=== PATIENT | male | born 1995 | race Hispanic/Latino ===

== ENCOUNTER 2021-02-19 08:55 | Emergency (ER) | payer SELFPAY ==
[2021-02-19] MEDS ORDERED: KETOROLAC 30 MG/ML INJ ONE (10:11)
[2021-02-19] MEDS ORDERED: NA CHLORIDE 0.9% 1,000 ML ONE (10:11)
[2021-02-19 10:39] LABS: Hematocrit 44.7 % (39.6-49.0); Lymphocytes % 12.5 % (15.3-44.8); MPV 8.5 fL (7.6-11.3); RBC Red Blood Cell Count 4.98 M/uL (4.33-5.43)
--- NOTE | 2021-02-19 11:27 | RAD REPORT ---
EXAM DESCRIPTION: RAD - Chest Single View - 02/19/2021 11:08 am CLINICAL HISTORY: chest pain, sob Chest pain. COMPARISON: CHEST SINGLE VIEW dated 07/20/2011 FINDINGS: Portable technique limits examination quality. The lungs are grossly clear. The heart is normal in size. No displaced fractures. IMPRESSION: No acute intrathoracic process suspected.
[2021-02-19 13:02] LABS: Potassium 3.9 mmol/L (3.5-5.1)
[2021-02-19 16:56] LABS: Troponin High Sensitivity 5.1 pg/mL (<58.9)
--- NOTE | 2021-02-19 17:36 | EDPHYS ---
Physician Documentation [facility] Name: Huseyin Shepherd Age: 26 yrs Sex: Male : 1995 Arrival Date: 02/19/2021 Time: 08:59 Bed 18 Private MD: ED Physician Aj Carlson HPI: 02/19 09:55 This 26 yrs old Male presents to ER via Ambulatory with complaints of covid+, jmm symptoms worsening. 09:55 The patient or guardian reports cough. Onset: The symptoms/episode began/occurred jmm gradually, 1 week(s) ago. Modifying factors: The symptoms are alleviated by nothing. the symptoms are aggravated by nothing. Associated signs and symptoms: Pertinent positives: chest pain, with cough, with movement, with breathing. The patient has not experienced similar symptoms in the past. Patient diagnosed with covid 1 week ago. Patient complains of worsening body aches and chest pain since onset. Patient states that he has had decreased appetite.. Historical: - Allergies: 09:33 No Known Allergies; [facility] - Home Meds: 09:33 None [Active]; [facility] - PMHx: 09:33 Migraine; [facility] - Immunization history:: Adult Immunizations up to date. - Social history:: Smoking status: Patient denies any tobacco usage or history of. ROS: 09:55 Constitutional: Positive for body aches, chills. jmm 09:55 Cardiovascular: Positive for chest pain, with cough. 09:55 Respiratory: Positive for shortness of breath. 09:55 All other systems are negative. Exam: 09:55 Constitutional: This is a well developed, well nourished patient who is awake, alert, jmm and in no acute distress. Head/Face: atraumatic. Eyes: EOMI, no conjunctival erythema appreciated ENT: Moist Mucus Membranes Neck: Trachea midline, Supple Chest/axilla: Normal chest wall appearance and motion. Cardiovascular: Regular rate and rhythm. No edema appreciated Respiratory: Normal respirations, no respiratory distress appreciated Abdomen/GI: Non distended, soft Back: Normal ROM Skin: General appearance color normal MS/ Extremity: Moves all extremities, no obvious deformities appreciated, no edema noted to the lower extremities Neuro: Awake and alert, normal gait Psych: Behavior is normal, Mood is normal, Patient is cooperative and pleasant Vital Signs: 09:28 BP 136 / 89; Pulse 89; Resp 18; Temp 98.7(TE); Pulse Ox 100% on R/A; Weight 54.43 kg; [facility] Height 5 ft. 3 in. (160.02 cm); Pain 7/10; 10:31 BP 139 / 76; Pulse 80; Resp 16; Pulse Ox 100% ; vg1 11:31 BP 136 / 89; Pulse 64; Resp 18; Pulse Ox 98% ; vg1 12:30 BP 127 / 79; Pulse 90; Resp 20; Pulse Ox 100% ; vg1 13:15 BP 128 / 73; Pulse 68; Resp 17; Pulse Ox 99% ; vg1 14:45 BP 137 / 90; Pulse 74; Resp 16; Pulse Ox 99% ; vg1 09:28 Body Mass Index 21.26 (54.43 kg, 160.02 cm) [facility] MDM: 09:55 Patient medically screened. arabella 17:34 Data reviewed: vital signs, nurses notes. Counseling: I had a detailed discussion with arabella the patient and/or guardian regarding: the historical points, exam findings, and any diagnostic results supporting the discharge/admit diagnosis, radiology results, the need for outpatient follow up, to return to the emergency department if symptoms worsen or persist or if there are any questions or concerns that arise at home. ED course: Patient patient is alert and nontoxic in appearance in the ED. No signs of respiratory distress. Labs are unremarkable. Patient advised to follow-up PCP and otherwise given strict return precautions. Patient understood agrees plan of care.. 02/19 09:56 Order name: CBC with Diff; Complete Time: 10:41 [facility] 02/19 09:56 Order name: BMP; Complete Time: 17:14 [facility] 02/19 09:56 Order name: D-Dimer; Complete Time: 10:48 [facility] 02/19 09:56 Order name: Troponin High Sensitivity; Complete Time: 17:14 [facility] 02/19 09:57 Order name: Chest Single View XRAY; Complete Time: 11:42 [facility] 02/19 09:56 Order name: Saline Lock; Complete Time: 10:28 [facility] 02/19 09:57 Order name: EKG - Nurse/Tech; Complete Time: 10:51 [facility] Administered Medications: 10:24 Drug: NS 0.9% 1000 ml Route: IV; Rate: 1 bolus; Site: right antecubital; vg1 11:31 Follow up: IV Status: Completed infusion; IV Intake: 1000ml vg1 10:25 Drug: Ketorolac 30 mg Route: IVP; Site: right antecubital; vg1 11:31 Follow up: Response: No adverse reaction; Marked relief of symptoms vg1 Disposition Summary: 02/19/21 17:36 Discharge Ordered Location: Home [facility] Condition: Stable jm Diagnosis - Viral Syndrome [facility] Followup: [facility] - With: Private Physician - When: 2 - 3 days - Reason: Recheck today's complaints, Continuance of care, Re-evaluation by your physician Discharge Instructions: - Discharge Summary Sheet [facility] - COVID-19 [facility] Forms: - Medication Reconciliation Form [facility] - Thank You Letter [facility] - Antibiotic Education [facility] - Prescription Opioid Use [facility] Signatures: Dispatcher [employer] Nima Drew PA PA jmm Garcia, Victoria RN RN vg1 Katy Claire RN RN jh5
--- NOTE | 2021-02-19 17:36 | ER ---
Nurse's Notes [facility] Name: Huseyin Shepherd Age: 26 yrs Sex: Male : 1995 Arrival Date: 02/19/2021 Time: 08:59 Bed 18 Private MD: Diagnosis: Viral Syndrome Presentation: 02/19 09:28 Chief complaint: Patient states: COVID+ last week and still positive on Tuesday; has jh5 15lbs and entire body hurts with muscle aches; medicine not helping ; feeling air hunger with trouble walking up stairs. Coronavirus screen: Vaccine status: Patient reports being unvaccinated. Client denies travel out of the [place] in the last 14 days. Client presents with at least one sign or symptom that may indicate coronavirus-19. Standard/surgical mask placed on the client. Client reports previous positive COVID test result. Date of collection: February 17, 2020. Ebola Screen: Patient negative for fever greater than or equal to 101.5 degrees Fahrenheit, and additional compatible Ebola Virus Disease symptoms Patient denies exposure to infectious person. Patient denies travel to an Ebola-affected area in the 21 days before illness onset. Initial Sepsis Screen: Does the patient meet any 2 criteria? No. Patient's initial sepsis screen is negative. Does the patient have a suspected source of infection? No. Patient's initial sepsis screen is negative. Risk Assessment: Do you want to hurt yourself or someone else? Patient reports no desire to harm self or others. Onset of symptoms was February 11, 2021. 09:28 Method Of Arrival: Ambulatory [facility] 09:28 Acuity: EMETERIO 3 5 Triage Assessment: 09:33 General: Appears uncomfortable, well groomed, well developed, well nourished, Behavior [facility] is calm, cooperative, appropriate for age, quiet. Pain: Complains of pain in head, neck, chest, abdomen, pelvis, right arm, right hand, left arm, left hand, right leg, right foot, left leg, left foot, back of head, back of neck, back of left arm, back of right arm, posterior chest, buttocks, back of left leg, back of right leg, left heel, right heel and back. Historical: - Allergies: 09:33 No Known Allergies; [facility] - Home Meds: 09:33 None [Active]; jh5 - PMHx: 09:33 Migraine; 5 - Immunization history:: Adult Immunizations up to date. - Social history:: Smoking status: Patient denies any tobacco usage or history of. Screenin:31 Abuse screen: Denies threats or abuse. Abuse screen: Denies threats or abuse. vg1 Nutritional screening: No deficits noted. Tuberculosis screening: No symptoms or risk factors identified. Fall Risk No fall in past 12 months (0 pts). No secondary diagnosis (0 pts). IV access (20 points). Ambulatory Aid- None/Bed Rest/Nurse Assist (0 pts). Gait- Normal/Bed Rest/Wheelchair (0 pts) Mental Status- Oriented to own ability (0 pts). Total Hill Fall Scale indicates No Risk (0-24 pts). Assessment: 10:15 General: Appears in no apparent distress. uncomfortable, Behavior is calm, cooperative. vg1 Pain: Complains of pain in generalized body Pain currently is 7 out of 10 on a pain scale. Neuro: Level of Consciousness is awake, alert, obeys commands, Oriented to person, place, time, situation. Cardiovascular: Patient's skin is warm and dry. Respiratory: Reports cough that is Airway is patent Respiratory effort is even, unlabored, Breath sounds are clear bilaterally. GI: Reports diarrhea, nausea, vomiting. : No signs and/or symptoms were reported regarding the genitourinary system. EENT: No signs and/or symptoms were reported regarding the EENT system. Derm: Skin is intact, is healthy with good turgor. Musculoskeletal: Circulation, motion, and sensation intact. 11:31 Reassessment: Patient appears in no apparent distress at this time. Patient and/or vg1 family updated on plan of care and expected duration. Pain level reassessed. Pt resting with eyes closed; family member at bedside. 12:50 Reassessment: Patient appears in no apparent distress at this time. Patient and/or vg1 family updated on plan of care and expected duration. Pain level reassessed. Patient is alert, oriented x 3, equal unlabored respirations, skin warm/dry/pink. Patient denies pain at this time. Patient states feeling better. 13:53 Reassessment: Patient appears in no apparent distress at this time. No changes from vg1 previously documented assessment. Patient is alert, oriented x 3, equal unlabored respirations, skin warm/dry/pink. 15:00 Reassessment: Patient appears in no apparent distress at this time. No changes from 1 previously documented assessment. Patient is alert, oriented x 3, equal unlabored respirations, skin warm/dry/pink. 16:49 Reassessment: Patient appears in no apparent distress at this time. No changes from 1 previously documented assessment. Patient and/or family updated on plan of care and expected duration. Pain level reassessed. Patient is alert, oriented x 3, equal unlabored respirations, skin warm/dry/pink. Vital Signs: 09:28 BP 136 / 89; Pulse 89; Resp 18; Temp 98.7(TE); Pulse Ox 100% on R/A; Weight 54.43 kg; [facility] Height 5 ft. 3 in. (160.02 cm); Pain 7/10; 10:31 BP 139 / 76; Pulse 80; Resp 16; Pulse Ox 100% ; vg1 11:31 BP 136 / 89; Pulse 64; Resp 18; Pulse Ox 98% ; vg1 12:30 BP 127 / 79; Pulse 90; Resp 20; Pulse Ox 100% ; vg1 13:15 BP 128 / 73; Pulse 68; Resp 17; Pulse Ox 99% ; vg1 14:45 BP 137 / 90; Pulse 74; Resp 16; Pulse Ox 99% ; vg1 09:28 Body Mass Index 21.26 (54.43 kg, 160.02 cm) [facility] ED Course: 08:59 Patient arrived in ED. as 09:33 Triage completed. [facility] 09:33 Arm band placed on right wrist. [facility] 09:46 Nima Todd PA is PHCP. [facility] 09:46 Aj Carlson MD is Attending Physician. [facility] 10:08 Antonietta Ty, RN is Primary Nurse. [facility] 10:20 Initial lab(s) drawn, by mn, sent to lab. Inserted saline lock: 20 gauge in right vg1 antecubital area, using aseptic technique. Blood collected. 10:31 Patient has correct armband on for positive identification. Bed in low position. Call [facility] light in reach. Side rails up X 1. Adult w/ patient. 10:51 EKG done, by ED staff, reviewed by Nima AGUILAR. [facility] 11:08 Chest Single View XRAY In Process Unspecified. EDMS 18:22 No provider procedures requiring assistance completed. IV discontinued, intact, iw bleeding controlled, No redness/swelling at site. Pressure dressing applied. Administered Medications: 10:24 Drug: NS 0.9% 1000 ml Route: IV; Rate: 1 bolus; Site: right antecubital; vg1 11:31 Follow up: IV Status: Completed infusion; IV Intake: 1000ml vg1 10:25 Drug: Ketorolac 30 mg Route: IVP; Site: right antecubital; vg1 11:31 Follow up: Response: No adverse reaction; Marked relief of symptoms vg1 Intake: 11:31 IV: 1000ml; Total: 1000ml. vg1 Outcome: 17:36 Discharge ordered by . arabella 18:22 Discharged to home ambulatory, with family. 18:22 Condition: good 18:22 Discharge instructions given to 18:23 Patient left the ED. Signatures: Dispatcher [employer] EDMS Nima Todd PA PA jmm Martinez, Amelia as Williams, Irene, Angeli Pereira RN Antonietta Tirado RN RN vg1 Katy Claire RN RN jh5
[2021-02-19 18:42] VITALS: TEMP 98.7
[2021-02-19 18:48] VITALS: O2SAT 99
[2021-02-19 18:49] VITALS: BP 137/90
== END 2021-02-19 18:23 | disposition home or self-care (01) ==
LOC: ER 08:55
DX: U07.1 COVID-19 (principal)
CPT/HCPCS: 36415; 71045; 80048; 84484; 85025; 85379; 93005; 96361; 96374; 99284; J7030

== ENCOUNTER 2024-04-20 20:43 | Emergency (ER) | payer OTHER, SELFPAY ==
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
[2024-04-20] MEDS ORDERED: ACETAMINOPHEN 500 MG TAB ONE (22:18)
[2024-04-20] MEDS ORDERED: IBUPROFEN 400 MG TAB ONE (22:18)
--- NOTE | 2024-04-20 22:47 | RAD REPORT ---
EXAMINATION: XR Foot Right 3 View CLINICAL INDICATION: Male, 29 years old. [facility] MAIN Pain;Swelling Bed Name: [id number] TECHNIQUE: 3 view radiographs of the right foot were obtained. COMPARISON: 04/10/2014 FINDINGS: No evidence of fracture or dislocation. Normal alignment. No evidence of arthropathy or oth er focal bone lesion. Soft tissues show no acute findings, stable rounded radiopaque structure in the space between the proximal second and third metatarsals.. No significant degenerative changes. IMPRESSION: No acute osseous abnormalities.
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
[2024-04-20 23:38] VITALS: TEMP 98.7; O2SAT 100
[2024-04-20 23:39] VITALS: BP 133/80
== END 2024-04-20 23:26 | disposition home or self-care (01) ==
LOC: ER 20:43
DX: S93.691A Other sprain of right foot, initial encounter (principal)
CPT/HCPCS: 99283

== ENCOUNTER 2024-04-30 00:19 | Emergency (ER) | payer SELFPAY ==
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
--- NOTE | 2024-04-30 01:00 | EDPHYS ---
Physician Documentation [facility] Name: Huseyin Shepherd Age: 29 yrs Sex: Male : 1995 Arrival Date: 04/30/2024 Time: 00:19 Bed 16 Private MD: ED Physician Carlito Jacobs HPI: 04/30 00:37 This 29 yrs old Male presents to ER via Unassigned with complaints of Foreign sp4 Body In Ear. Historical: - PMHx: 01:06 Migraine; ay - Infectious Disease History:: Denies. - Social history:: Smoking status: Patient denies any tobacco usage or history of. Vital Signs: 01:04 BP 141 / 80; Pulse 72; Resp 19; Temp 97.6; Pulse Ox 100% on R/A; ay MDM: 00:59 Medical Screening Exam initiated sp4 Administered Medications: No medications were administered Disposition Summary: 04/30/24 00:59 Discharge Ordered Notes: Location: Home sp4 Problem: new sp4 Symptoms: have improved sp4 Condition: Stable sp4 Diagnosis - Foreign body left ear canal , choudhary in the left ear canal sp4 Followup: sp4 - With: Private Physician - When: 7 - 10 days - Reason: Recheck today's complaints Discharge Instructions: - Discharge Summary Sheet sp4 - Ear Foreign Body, [id number] sp4 Forms: - Patient Portal Instructions sp4 Addendum: 05/01/2024 01:15 Addendum: 29-year-old male presents with acute choudhary lodged in the left ear canal.. s p4 Patient reports moderate to severe pain in her left ear canal. Patient reports he can feel choudhary is still alive. ROS positive for acute left ear canal pain otherwise negative. Focused physical exam reveals normal right ear canal, left ear canal contains a life small choudhary. Procedural extraction - alligator forceps were used to carefully extracted choudhary in its entirety from the left ear canal. Choudhary was completely removed. Ear canal was visualized with otoscope and found to have small amount of blood otherwise clear ear canal. Patient stable for discharge home after removal of a choudhary from the ear canal. Stable for discharge . Signatures: Carlito Jacobs MD MD sp4 Taiwo Mejia, RN RN ay
--- NOTE | 2024-04-30 01:12 | ER ---
Nurse's Notes [facility] Name: Huseyin Shepherd Age: 29 yrs Sex: Male : 1995 Arrival Date: 04/30/2024 Time: 00:19 Bed 16 Private MD: Diagnosis: Foreign body left ear canal , caputo in the left ear canal Presentation: 04/30 01:04 Chief complaint: Patient states: foreign body in left ear. Coronavirus screen: Client ay denies travel out of the [place] in the last 14 days. Ebola Screen: No symptoms or risks identified at this time. Initial Sepsis Screen: Does the patient meet any 2 criteria? No. Patient's initial sepsis screen is negative. Does the patient have a suspected source of infection? No. Patient's initial sepsis screen is negative. Risk Assessment: Do you want to hurt yourself or someone else? Patient reports no desire to harm self or others. Onset of symptoms was April 30, 2024. 01:04 Method Of Arrival: Ambulatory ay 01:04 Acuity: EMETERIO 4 ay Triage Assessment: 01:06 General: Appears in no apparent distress. uncomfortable, Behavior is calm, cooperative. ay Pain: Denies pain. EENT: Reports foreign body in left ear. Denies pain in left ear. Neuro: Level of Consciousness is awake, alert, obeys commands, Oriented to person, place, time, situation, Speech is normal. Cardiovascular: Denies chest pain, nausea, vomiting, Capillary refill < 3 seconds. Respiratory: Denies cough, shortness of breath. GI: No signs and/or symptoms were reported involving the gastrointestinal system. : No signs and/or symptoms were reported regarding the genitourinary system. Derm: No signs and/or symptoms reported regarding the dermatologic system. Historical: - PMHx: 01:06 Migraine; ay - Infectious Disease History:: Denies. - Social history:: Smoking status: Patient denies any tobacco usage or history of. Screenin:09 [facility] ED Fall Risk Assessment (Adult) History of falling in the last 3 months, ay including since admission No falls in past 3 months (0 pts) Confusion or Disorientation No (0 pts) Intoxicated or Sedated No (0 pts) Impaired Gait No (0 pts) Mobility Assist Device Used No (0 pt) Altered Elimination No (0 pt) Score/Fall Risk Level 0 - 2 = Low Risk Oriented to surroundings, Maintained a safe environment, Educated pt \T\ family on fall prevention, incl call for assistance when getting out of bed. Abuse screen: Denies threats or abuse. Nutritional screening: No deficits noted. Tuberculosis screening: No symptoms or risk factors identified. Assessment: 01:09 General: See Triage Assessment. Pain: Denies pain. ay Vital Signs: 01:04 BP 141 / 80; Pulse 72; Resp 19; Temp 97.6; Pulse Ox 100% on R/A; ay ED Course: 00:21 Patient arrived in ED. [email or web address] 00:37 Carlito Jacobs MD is Attending Physician. kathy 01:04 Taiwo Mejia, LOIS is Primary Nurse. ay :06 Triage completed. ay :09 Patient did not have IV access during this emergency room visit. ay Administered Medications: No medications were administered Outcome: 00:59 Discharge ordered by . [email or web address] 01:10 Discharged to home ambulatory, ay 01:10 Condition: stable 01:10 Discharge instructions given to patient, Instructed on discharge instructions, Demonstrated understanding of instructions, 01:11 Patient left the ED. ay Signatures: Kim Danyelle [email or web address] Carlito Jacobs MD MD sp4 Taiwo Mejia, RN RN ay
[2024-04-30 01:18] VITALS: BP 141/80; TEMP 97.6; O2SAT 100
== END 2024-04-30 01:11 | disposition home or self-care (01) ==
LOC: ER 00:19
DX: T16.2XXA Foreign body in left ear, initial encounter (principal)
CPT/HCPCS: 99282

== ENCOUNTER 2024-05-25 01:22 | Emergency (ER) | payer SELFPAY, OTHER ==
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
[2024-05-25] MEDS ORDERED: LIDOCAINE 2% W/EPI 1:200,000 MPF 20 ML VIAL IM ONE (02:53)
[2024-05-25] MEDS ORDERED: NA CHLORIDE 0.9% 1,000 ML ONE (02:53)
[2024-05-25 03:07] LABS: Absolute Basophils 0.1 K/uL (0-0.5); Absolute Eosinophils 0.1 K/uL (0-0.5); Absolute Lymphocytes (CBC) 1.8 K/uL (0.7-4.9); Absolute Monocytes 0.7 K/uL (0.1-1.3); Absolute Neutrophil 5.1 K/uL (1.8-8.0); Basophils % 0.9 % (0-1.3); Eosinophils % 1.8 % (0-4.4); Hematocrit 43.8 % (39.6-49.0); Hemoglobin 15.1 g/dL (13.6-17.9); Lymphocytes % 22.5 % (15.3-44.8); MCH 31.3 pg (27.0-35.0); MCHC 34.4 g/dL (32.0-36.0); MCV 90.9 fL (80-100); MPV 7.8 fL (7.6-11.3); Monocytes % 8.9 % (3.3-12.3); Neutrophils % 65.9 % (41.7-73.7); Platelets 250 thou/uL (152-406); RBC Red Blood Cell Count 4.82 M/uL (4.33-5.43); Red Cell Distribution Width 13.7 % (12.1-15.2)
[2024-05-25 03:15] LABS: Anion Gap 11.4 mEq/L (5.0-15.0); Potassium 3.4 mEq/L (3.5-5.1)
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
[2024-05-25 07:32] VITALS: TEMP 98.5
[2024-05-25 07:37] VITALS: BP 103/62; O2SAT 97
== END 2024-05-25 07:02 | disposition short-term general hospital (02) ==
LOC: ER 01:22
DX: S01.81XA Laceration without foreign body of other part of head, initial encounter (principal); M43.12 Spondylolisthesis, cervical region; V58.5XXA Driver of pick-up truck or van injured in noncollision transport accident in traffic accident, initial encounter
CPT/HCPCS: 12001; 36415; 70450; 71260; 72125; 74177; 80048; 82077; 85025; 86850; 86900; 86901; 96360; 96361; 99285; J7030; Q9967

== ENCOUNTER 2024-05-30 15:11 | Emergency (ER) | payer SELFPAY, OTHER ==
[2011-07-23 11:56] VITALS: BP 118/71
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
--- NOTE | 2024-05-30 15:30 | EDPHYS ---
Physician Documentation [facility] Name: Huseyin Shepherd Age: 29 yrs Sex: Male : 1995 Arrival Date: 05/30/2024 Time: 15:11 Bed DX4 Private MD: ED Physician George Colby HPI: 05/30 15:27 This 29 yrs old Male presents to ER via Unassigned with complaints of Suture kb Removal. 15:27 Pt is a 29 year old male who presents to have sutures removed from forehead that were kb placed 5 days ago. Denies any problems or pain. Historical: - Allergies: 15:38 No Known Allergies; ll1 - PMHx: 15:38 Migraine; ll1 - Immunization history:: Adult Immunizations up to date. - Infectious Disease History:: Denies. - Social history:: Smoking status: Patient denies any tobacco usage or history of. ROS: 15:27 Constitutional: As per HPI kb Exam: 15:27 Constitutional: This is a well developed, well nourished patient who is awake, alert, kb and in no acute distress. Head/Face: Normocephalic, atraumatic. ENT: Moist Mucous membranes Respiratory: Respirations even and unlabored. No increased work of breathing. Talking in full sentences MS/ Extremity: Pulses equal, no cyanosis. Neurovascular intact. Full, normal range of motion. Neuro: Awake and alert, GCS 15, oriented to person, place, time, and situation. 15:27 Skin: Wound recheck: Suture laceration closure: the wound is healing well, the edges are well approximated, no evidence of dehiscence, no drainage, no erythema, no swelling, Vital Signs: 15:38 Resp 16; Pain 0/10; ll1 15:38 Pain Scale: Adult ll1 MDM: 15:26 Medical Screening Exam initiated kb 15:28 Data reviewed: vital signs, nurses notes. Counseling: I had a detailed discussion with kb the patient and/or guardian regarding the historical points, exam findings, and any diagnostic results supporting the discharge/admit diagnosis, the need for outpatient follow up, a family practitioner, to return to the emergency department if symptoms worsen or persist or if there are any questions or concerns that arise at home. ED course: wound cleaned with saline and began bleeding. Pressure applied and bleeding resolved. Recommended sutures stay in place for 5 more days. Pt requested a note to go back to work. . Administered Medications: No medications were administered Disposition Summary: 05/30/24 15:29 Discharge Ordered Notes: Location: Home kb Condition: Stable kb Diagnosis - Encounter for removal of sutures - not done kb Followup: kb - With: Emergency Department - When: As needed - Reason: Worsening of condition Followup: kb - With: Private Physician - When: 2 - 3 days - Reason: Recheck today's complaints, Continuance of care, Re-evaluation by your physician Discharge Instructions: - Discharge Summary Sheet kb - Sutures, Sherwood, or Adhesive Wound Closure kb Forms: - Work release form kb - Medication Reconciliation Form kb - Antibiotic Education kb - Prescription Opioid Use kb - Patient Portal Instructions kb - Leadership Thank You Letter kb Signatures: Dorothea Charles FNP-C FNP-Kavita Fairchild, RN RN ll1
--- NOTE | 2024-05-30 15:42 | ER ---
Nurse's Notes [facility] Name: Huseyin Shepherd Age: 29 yrs Sex: Male : 1995 Arrival Date: 05/30/2024 Time: 15:11 Bed DX4 Private MD: Diagnosis: Encounter for removal of sutures-not done Presentation: 05/30 15:38 Chief complaint: Patient states: Needs stitches removed from forehead. No fever. ll1 Coronavirus screen: Client denies travel out of the [place] in the last 14 days. At this time, the client does not indicate any symptoms associated with coronavirus-19. Ebola Screen: Patient denies travel to an Ebola-affected area in the 21 days before illness onset. Initial Sepsis Screen: Does the patient meet any 2 criteria? No. Patient's initial sepsis screen is negative. Does the patient have a suspected source of infection? No. Patient's initial sepsis screen is negative. Risk Assessment: Do you want to hurt yourself or someone else? Patient reports no desire to harm self or others. Onset of symptoms was May 30, 2024. 15:38 Method Of Arrival: Ambulatory ll1 15:38 Acuity: EMETERIO 5 ll1 Triage Assessment: 15:39 General: Appears in no apparent distress. Behavior is calm, cooperative, appropriate ll1 for age, needs stitches removed from forehead. Pain: Denies pain. Historical: - Allergies: 15:38 No Known Allergies; ll1 - PMHx: 15:38 Migraine; ll1 - Immunization history:: Adult Immunizations up to date. - Infectious Disease History:: Denies. - Social history:: Smoking status: Patient denies any tobacco usage or history of. Screenin:40 [facility] ED Fall Risk Assessment (Adult) History of falling in the last 3 months, ll1 including since admission No falls in past 3 months (0 pts) Confusion or Disorientation No (0 pts) Intoxicated or Sedated No (0 pts) Impaired Gait No (0 pts) Mobility Assist Device Used No (0 pt) Altered Elimination No (0 pt) Score/Fall Risk Level 0 - 2 = Low Risk Maintained a safe environment, Hourly rounding (assess needs \T\ fall precautionary measures) done. Abuse screen: Denies threats or abuse. Nutritional screening: No deficits noted. Tuberculosis screening: No symptoms or risk factors identified. Vital Signs: 15:38 Resp 16; Pain 0/10; ll1 15:38 Pain Scale: Adult ll1 ED Course: 15:13 Patient arrived in ED. im 15:16 [facility]othea Charles F[facility]-C [facility] kb 15:16 George Colby MD is Attending Physician. kb 15:38 Arm band placed on. ll1 15:39 Triage completed. ll1 15:40 No provider procedures requiring assistance completed. Patient did not have IV access ll1 during this emergency room visit. 15:41 Patient has correct armband on for positive identification. Bed in low position. ll1 Provided Education on: ER procedures and process. Administered Medications: No medications were administered Medication: 15:40 VIS not applicable for this client. ll1 Outcome: 15:29 Discharge ordered by . kb 15:40 Discharged to home ambulatory, ll1 15:40 Condition: stable 15:40 Discharge instructions given to patient, Instructed on discharge instructions, follow up and referral plans. wound care, Demonstrated understanding of instructions, follow-up care, wound care, 15:41 Patient left the ED. ll1 Signatures: Dorothea Charles FNP-C FNP-Ckb Lewis, Lynsay RN RN ll1 Jennifer Miller im
== END 2024-05-30 15:41 | disposition home or self-care (01) ==
LOC: ER 15:11
DX: Z48.02 Encounter for removal of sutures (principal)

== ENCOUNTER 2024-06-06 18:10 | Emergency (ER) | payer OTHER, SELFPAY ==
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
--- NOTE | 2024-06-06 18:41 | ER ---
Nurse's Notes [facility] Name: Huseyin Shepherd Age: 29 yrs Sex: Male : 1995 Arrival Date: 06/06/2024 Time: 18:10 Bed Treatment Private MD: Diagnosis: Encounter for removal of sutures Presentation: 06/06 18:33 Chief complaint: Patient states: needs sutures removed from forehead. Coronavirus iw screen: At this time, the client does not indicate any symptoms associated with coronavirus-19. Ebola Screen: No symptoms or risks identified at this time. Initial Sepsis Screen: Does the patient meet any 2 criteria? No. Patient's initial sepsis screen is negative. Does the patient have a suspected source of infection? No. Patient's initial sepsis screen is negative. Risk Assessment: Do you want to hurt yourself or someone else? Patient reports no desire to harm self or others. 18:33 Method Of Arrival: Ambulatory iw 18:33 Acuity: EMETERIO 5 iw Triage Assessment: 19:00 General: Behavior is calm, cooperative. kb3 Historical: - Allergies: 18:34 No Known Allergies; iw - Home Meds: 18:34 None [Active]; iw - PMHx: 18:34 Migraine; iw - PSHx: 18:34 None; iw - Immunization history:: Adult Immunizations up to date, Client reports having NOT received the Covid vaccine. Last tetanus immunization: up to date. - Infectious Disease History:: Denies. - Social history:: Smoking status: Patient denies any tobacco usage or history of. Screenin:00 [facility] ED Fall Risk Assessment (Adult) History of falling in the last 3 months, kb3 including since admission No falls in past 3 months (0 pts) Confusion or Disorientation No (0 pts) Intoxicated or Sedated No (0 pts) Impaired Gait No (0 pts) Mobility Assist Device Used No (0 pt) Altered Elimination No (0 pt) Score/Fall Risk Level 0 - 2 = Low Risk Oriented to surroundings. Abuse screen: Denies threats or abuse. Denies injuries from another. Nutritional screening: No deficits noted. Tuberculosis screening: No symptoms or risk factors identified. Assessment: 18:33 General: Appears in no apparent distress. Pain: Denies pain. Neuro: Level of iw Consciousness is awake, alert, obeys commands, Oriented to person, place, time, situation. Vital Signs: 18:33 BP 131 / 95; Pulse 68; Resp 16; Temp 98.1; Pulse Ox 100% ; iw ED Course: 18:14 Patient arrived in ED. cj3 18:21 George Haider PA is PHCP. cp 18:21 George Colby MD is Attending Physician. cp 18:33 Arm band placed on. iw 18:34 Triage completed. iw 19:00 Patient has correct armband on for positive identification. Provided Education on: kb3 Wound care. 19:00 Assisted provider with: Suture removal. Patient did not have IV access during this kb3 emergency room visit. 19:01 Whitney Marroquin, RN is Primary Nurse. iw Administered Medications: No medications were administered Medication: 19:00 VIS not applicable for this client. kb3 Outcome: 18:41 Discharge ordered by MD. cp 20:07 Discharged to home ambulatory, kb3 20:07 Condition: good 20:07 Discharge instructions given to patient, Instructed on discharge instructions, wound care, Demonstrated understanding of instructions, follow-up care, wound care, 20:08 Patient left the ED. kb3 Signatures: Whitney Marroquin, RN RN iw George Haider PA PA cp Bradberry, Kelly RN RN kb3 Abimbola Rutherford cj3 Corrections: (The following items were deleted from the chart) 18:34 18:33 Pulse 68bpm; Resp 16bpm; Pulse Ox 100%; Temp 98.1F; iw iw 20:05 19:01 EKG completed in triage. Results shown to MD. kb3 20:06 20:05 VIS not applicable for this client. kb3 kb3
--- NOTE | 2024-06-06 18:42 | EDPHYS ---
Physician Documentation [facility] Name: Huseyin Shepherd Age: 29 yrs Sex: Male : 1995 Arrival Date: 06/06/2024 Time: 18:10 Bed Treatment Private MD: George Ordoñez HPI: 06/06 18:35 This 29 yrs old Male presents to ER via Ambulatory with complaints of Suture cp Removal. 18:35 The patient has sutures on the mid forehead. Previous treatment: The patient was cp initially treated on May 25, 2024, the care was rendered at [facility], Treatment type: The patient's original treatment included sutures, Previous recheck: was rechecked on May 30, 2024. 18:35 Sutures/yuval progress: The patient has no c/o's. The wound is well-healing with no cp redness, swelling, discharge, or dehiscence reported. Historical: - Allergies: 18:34 No Known Allergies; iw - Home Meds: 18:34 None [Active]; iw - PMHx: 18:34 Migraine; iw - PSHx: 18:34 None; iw - Immunization history:: Adult Immunizations up to date, Client reports having NOT received the Covid vaccine. Last tetanus immunization: up to date. - Infectious Disease History:: Denies. - Social history:: Smoking status: Patient denies any tobacco usage or history of. ROS: 18:35 Skin: Positive for history of laceration repair with sutures mid forehead, cp 18:35 Constitutional: Negative for body aches, chills, fever, cp 18:35 Neuro: Negative for altered mental status, dizziness, headache, cp 18:35 All other systems are negative, Exam: 18:35 Constitutional: The patient appears in no acute distress, alert, awake, comfortable, cp non-toxic, well developed, well nourished, 18:35 Head/face: Noted is repaired laceration mid forehead. 18:35 Eyes: Periorbital structures: appear normal, Conjunctiva: normal, no exudate, no injection, Lids and lashes: appear normal, bilaterally, 18:35 Chest/axilla: Inspection: normal, 18:35 Cardiovascular: Rate: normal, 18:35 Respiratory: the patient does not display signs of respiratory distress, Respirations: normal, no use of accessory muscles, no retractions, labored breathing, is not present, 18:35 Abdomen/GI: Inspection: abdomen appears normal, 18:35 Skin: Wound recheck: Suture laceration closure: the wound is healing well, the edges are well approximated, no evidence of dehiscence, no drainage, no erythema, no swelling, 3 sutures noted intact and in place mid forehead, Vital Signs: 18:33 BP 131 / 95; Pulse 68; Resp 16; Temp 98.1; Pulse Ox 100% ; iw Procedures: 18:38 Suture/Staple removal: Removed 3 sutures, from mid forehead, site appears well healed, cp Patient tolerated well. MDM: 18:33 Medical Screening Exam initiated derrick 18:40 Data reviewed: vital signs, nurses notes, and as a result, I will discharge patient. cp 18:41 Counseling: I had a detailed discussion with the patient and/or guardian regarding the cp historical points, exam findings, and any diagnostic results supporting the discharge/admit diagnosis, to return to the emergency department if symptoms worsen or persist or if there are any questions or concerns that arise at home. 18:41 Response to treatment: the patient's symptoms have markedly improved after treatment, cp and as a result, I will discharge patient. 06/06 20:07 Order name: Suture Removal; Complete Time: 20:07 kb3 Administered Medications: No medications were administered Disposition: 06/07 13:23 Chart complete. cp Disposition Summary: 06/06/24 18:41 Discharge Ordered Notes: Location: Home cp Problem: new cp Symptoms: have improved cp Condition: Stable cp Diagnosis - Encounter for removal of sutures cp Followup: cp - With: Emergency Department - When: As needed - Reason: Worsening of condition Discharge Instructions: - Discharge Summary Sheet cp - How to Change Your Wound Dressing cp - Sutures, [place], or Adhesive Wound Closure cp - Suture Removal, Care After cp - Laceration Care, Adult, [id number] cp Forms: - Medication Reconciliation Form cp - Antibiotic Education cp - Prescription Opioid Use cp - Patient Portal Instructions cp - Leadership Thank You Letter cp Signatures: George Colby MD MD cha Williams, Irene, RN RN iw Page, Corey, PA PA cp Bradberry, Kelly, RN RN kb3 Corrections: (The following items were deleted from the chart) 04/30 23:29 18:35 Previous treatment: Previous recheck: cp cp
[2024-06-06 20:12] VITALS: BP 131/95; TEMP 98.1; O2SAT 100
== END 2024-06-06 20:08 | disposition home or self-care (01) ==
LOC: ER 18:10
DX: Z48.02 Encounter for removal of sutures (principal)